=== PATIENT | male | born 1930 | race Caucasian/White ===

== ENCOUNTER 2018-01-06 12:43 | Outpatient (CLI) | payer MEDICARE, BC ==
--- NOTE | 2018-01-06 15:24 | MRI ---
MRI OF THE BRAIN WITHOUT CONTRAST: INDICATION: History of Alzheimer's disease. COMPARISON: None. TECHNIQUE: Multiplanar, multisequence MR images were obtained of the brain without IV contrast. FINDINGS: There is moderate generalized cerebral and cerebellar atrophy. There is mild chronic small-vessel wh ite matter ischemic change. Septum pellucidum and third ventricle are midline. No area of restricte d diffusion is seen to suggest the presence of acute infarction. There is ex vacuo dilatation of the lateral ventricle as well as the third ventricle. The degree of atrophy involving the cerebral hawa ex appears slightly more accentuated within the temporal lobe, right greater than left. There are ap propriate flow voids within the major intracranial vessels. The [place] lenses have been replaced. T he skull and extracranial soft tissues appear within normal limits. IMPRESSION: 1. Moderate to prominent generalized cerebral and cerebellar atrophy with predominantly involving th e temporal lobes. 2. 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 POS: JORGE
== END 2018-01-06 12:44 | disposition home or self-care (01) ==
LOC: SCSMRI 12:43
PROVIDERS: ATTEND Physician Assistant Medical
DX: G30.1 Alzheimer's disease with late onset (principal); G93.89 Other specified disorders of brain
CPT/HCPCS: 70551; 82565

== ENCOUNTER 2018-01-07 12:33 | Outpatient (CLI) | payer MEDICARE, BC ==
--- NOTE | 2018-01-07 16:05 | PET ---
NUCLEAR MEDICINE DEMENTIA SCAN: History Alzheimer's disease. COMPARISON: None. TECHNIQUE: The patient was administered 6.8 mCi of [id number]. FINDINGS: Decreased FDG localization involving the left and right temporal lobes. The possibility of Alzheimer 's disease can be considered. IMPRESSION: Decreased fluorodeoxyglucose localization involving bilateral temporal lobes. POS: JORGE
== END 2018-01-07 12:34 | disposition home or self-care (01) ==
LOC: PET 12:33
PROVIDERS: ATTEND Psychiatry & Neurology Neurology
DX: G30.1 Alzheimer's disease with late onset (principal)
CPT/HCPCS: 78608; A9552